=== PATIENT | female | born 2000 | race African-American/Black ===

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

== ENCOUNTER 2019-05-13 22:26 | Emergency (ER) | payer OTHER | END 2019-05-14 00:25 | disposition home or self-care (01) | LOC: ERS 22:26 | DX: R50.9 Fever, unspecified (principal) | CPT/HCPCS: 87804; 99283 ==

== ENCOUNTER 2019-09-23 14:33 | Inpatient (IN) | payer OTHER ==
[~2019-09-23 14:33] MED LIST: Bupivacaine/Epinephrine 0.25% 30 ML VIAL ONE
[2019-09-23 15:13] VITALS: BMI 28.6
[2019-09-23] MEDS ORDERED: NS / Oxytocin 40 units/1000ml 1,000 ML IV PRN (15:40)
[2019-09-23] MEDS ORDERED: hydrALAZINE 20 MG/ML VIAL SLOW IVP PRN (15:40)
[2019-09-23] MEDS ORDERED: Promethazine HCl 25 MG/ML VIAL IM PRN ×2 (15:40→23:22)
[2019-09-23] MEDS ORDERED: Ondansetron PF 4 MG/2 ML Vial IVP PRN ×2 (15:40→23:22)
[2019-09-23] MEDS ORDERED: HYDROcodone/Acetaminophen 5/325 mg Tablet PO PRN ×2 (15:40)
[2019-09-23] MEDS ORDERED: Ibuprofen 800 MG TAB PO PRN (15:40)
[2019-09-23] MEDS ORDERED: Lidocaine 1% (PF) 30 ML VIAL SC PRN (15:40)
[2019-09-23] MEDS ORDERED: Butorphanol Tartrate 1 MG/ML VIAL SLOW IVP PRN (15:40)
[2019-09-23] MEDS ORDERED: Penicillin G Potassium 5 MILL.UNITS in Sodium Chloride 0.9% 100 ML IVPB SCH (16:00)
--- NOTE | 2019-09-23 16:10 | PDOC.LDHP ---
Labor and Delivery H&P Chief complaint: loss of fluid, other HPI: Patient of Dr Gomez HPI: 19 yo at 39 weeks with SROM, no VB, good FM. Denies any issues. Current gestational age (weeks): 39 Grav: 2 Para: 1 OB History Details: x1 Current complications: none Abnormal US findings: No Current medications: pre- vitamins Previous surgical history: none Allergies/Adverse Reactions: Allergies Allergy/AdvReac Type Severity Reaction Status Date / Time No Known Allergies Allergy Verified 09/23/19 15:00 Social history: none - Physical Exam Vital signs reviewed and normal: yes General: NAD Heart: RRR Lungs: CTAB Abdomen: gravid Extremeties: no edema FHT: category 1 Chauncey contractions every: rare - Vaginal Exam cm dilated: 0 (Fingertip on exam per RN) Effacement: 25% Station: -2 - Assessment PROM at full term, GBS pos. I have seen the patient at bedside. - Plan Plan: admit to L&D, cervical ripening, GBS antibiotic prophylaxis, anesthesia consult for pain management
--- NOTE | 2019-09-23 16:22 | PDOC.EVN ---
Event Note - Event Note Event Note: CYTOTEC: Just received a call from nursing. She is concerned that the vag cytotec may be flushed out as she is having copious LOF. We have agreed on po cytotec at same dose and frequency (25 mcg po Q3 hrs).
[2019-09-23] MEDS: Lactated Ringer's 1,000 ML IV SCH ×2 (16:30→23:10)
[2019-09-23] MEDS: Misoprostol 100 MCG TAB PO SCH ×2 (16:32→20:41)
[2019-09-23] MEDS ORDERED: Misoprostol 100 MCG TAB VAG SCH (17:00)
[2019-09-23 17:23] LABS: Hemoglobin 11.7 g/dL (12.0-16.0); Mean Corpuscular HGB CONC 32.3 g/dL (32.0-36.0); Mean Corpuscular Volume 92.9 fL (78.0-98.0); Mean Platelet Volume 7.1 fL (7.4-10.4); Platelet Count 300 thou/uL (130-400); RBC Distribution Width 13.6 % (11.5-14.5); Red Blood Cell (RBC) Count 3.88 mill/uL (4.00-5.20); White Blood Cell (WBC) Count 13.2 thou/uL (4.8-10.8)
[2019-09-23 18:01] LABS: HBSAg Index 0.13 S/CO (0-0.99); HIV (1/2) Antibody/Antigen Non-Reactive (NonReactive); HIV 1/2 INDEX 0.05 S/CO (<1.00); Hep B Surf Ag Non-Reactive S/CO (NonReactive); Syphilis Antibody Nonreactive (Nonreactive); Syphilis Antibody Index 0.02 S/CO (<1.00 Non-Reactive)
[2019-09-23] MEDS: Penicillin G 2.5 MILL.units 2.5 MILL.UNITS in Premix Bag 1 BAG IVPB SCH (20:41)
[2019-09-23] MEDS ORDERED: Fentanyl 4 mcg/Bup 0.1% Cadd 100 ML ONE (21:51)
[2019-09-23] MEDS ORDERED: Fentanyl 100 MCG/2 ML VIAL ONE (22:17)
[2019-09-23] MEDS ORDERED: Acetaminophen 500 MG TAB PO SCH (23:00)
[2019-09-23] MEDS ORDERED: diphenhydrAMINE 50 MG/ML VIAL IVP PRN (23:22)
[2019-09-23] MEDS ORDERED: Acetaminophen 325 MG TAB PO PRN (23:22)
[2019-09-23] MEDS ORDERED: EPHEDRINE 25 MG/5 ML SYRINGE SLOW IVP PRN (23:22)
[2019-09-23] MEDS ORDERED: Lactated Ringer's 500 ML IV PRN (23:22)
[2019-09-23] MEDS ORDERED: Naloxone HCl 0.4 mg/ml Vial IVP PRN ×2 (23:22)
[2019-09-23] MEDS ORDERED: Fentanyl 4 mcg/Bupivacaine 0.1% Cassette 100 ML EPIDURAL SCH (23:30)
[2019-09-23] MEDS ORDERED: Communication Order-Pharmacy FS SCH (23:30)
[2019-09-24] MEDS ORDERED: NS w/ Oxytocin 10 units 500 ML ONE (01:08)
[2019-09-24] MEDS ORDERED: NS w/ Oxytocin 10 units 500 ML IVPB SCH (01:15)
[2019-09-24] MEDS ORDERED: hydrALAZINE 20 MG/ML VIAL SLOW IVP PRN (03:04)
[2019-09-24] MEDS ORDERED: Acetaminophen/Codeine 30-300mg Tablet PO PRN ×2 (03:04)
[2019-09-24] MEDS ORDERED: Bisacodyl 10 MG SUPP PR PRN (03:04)
[2019-09-24] MEDS ORDERED: Lanolin Ointment 7 GM TUBE TOP PRN (03:04)
[2019-09-24] MEDS ORDERED: Benzocaine-Menthol 82.5 ML CAN TOP PRN (03:04)
[2019-09-24] MEDS ORDERED: Milk Of Magnesia 30 ML UDCUP PO PRN (03:04)
--- NOTE | 2019-09-24 03:09 | PDOC.OPDEL ---
OB Operative/Delivery Note Delivery Dr/Surgeon: Pradeep Assist: [facility] Pre-Delivery Diagnosis: active labor Procedure/Post Delivery Dx: spontaneous vaginal delivery Weeks gestation: 39 Anesthesia: local - Findings A - 1 min: 8 (NICU present at ) - 5 min: 9 - Additional Findings/Plan Placenta delivered: spontaneous (vilma at 4 minutes after baby (baby at 0244; placenta at 0248)) Repaired Obstetrical Laceration: 2nd degree (Suspect lac was due to patient delivery at "off angle" as she was semi sitting with one leg (RT) flexed and left leg less flexed. Lac repaired under local and SOWMYA. 2-0 chromic on SH used.) Estimated blood loss: 100 Compilations/Other Findings: no NC; baby vigorous at ; delayed cord clamp for 30 sec; counts correct; no vag packs Post delivery plan: routine recovery
[2019-09-24] MEDS ORDERED: NS / Oxytocin 40 units/1000ml 1,000 ML IV SCH (03:15)
[2019-09-24] MEDS: Ibuprofen 800 MG TAB PO SCH ×3 (04:10→20:42)
[2019-09-24] MEDS: Misoprostol 100 MCG TAB PO SCH (05:52)
[2019-09-24] MEDS ORDERED: Varicella virus, LIVE 0.5 ML VIAL SC ONE (09:00)
[2019-09-24] MEDS ORDERED: Measles/Mumps/Rubella 10 MCG/0.5 ML VIAL SC ONE (09:00)
[2019-09-24] MEDS ORDERED: Adacel (T-DAP) 0.5 ML SYRINGE IM ONE (09:00)
[2019-09-24] MEDS: Ferrous Sulfate 325 MG TAB PO SCH ×2 (09:02→18:51)
[2019-09-24] MEDS: Penicillin G 2.5 MILL.units 2.5 MILL.UNITS in Premix Bag 1 BAG IVPB SCH (09:17)
[2019-09-24] MEDS: Prenatal Vitamin 1 TAB PO SCH (09:23)
[2019-09-24] MEDS: Docusate Calcium (SURFAK) 240 MG CAP PO SCH ×2 (09:23→20:42)
[2019-09-25] MEDS: Ibuprofen 800 MG TAB PO SCH ×2 (05:18→13:49)
[2019-09-25 06:58] LABS: #Basophils 0.1 thou/uL (0.0-0.2); #Eosinphils 0.1 thou/uL (0.0-0.7); #Lymphocytes 3.7 thou/uL (1.20-3.40); #Monocytes 0.7 thou/uL (0.11-0.59); #Neutrophils 6.6 thou/uL (1.40-6.50); %Basophils 0.7 % (0.0-1.0); %Eosinophils 0.8 % (0.0-10.0); %Lymphocytes 32.9 % (28.0-48.0); %Monocytes 6.4 % (0.0-4.0); %Neutrophils 59.2 % (31.0-61.0); Hemoglobin 9.4 g/dL (12.0-16.0); Mean Corpuscular HGB CONC 31.6 g/dL (32.0-36.0); Mean Corpuscular Hemoglobin 29.9 pg (25.0-35.0); Mean Corpuscular Volume 94.7 fL (78.0-98.0); Platelet Count 250 thou/uL (130-400); RBC Distribution Width 13.7 % (11.5-14.5); Red Blood Cell (RBC) Count 3.14 mill/uL (4.00-5.20); White Blood Cell (WBC) Count 11.1 thou/uL (4.8-10.8)
--- NOTE | 2019-09-25 07:11 | PDOC.PP ---
Post Progress Note Post Day #: 1 Subjective: Doing well this morning, no complaints. Would like to go home today. PO intake tolerated: yes Ambulation: yes Vital Signs (12 hours) Temp Pulse Resp BP Pulse Ox 09/25/19 00:00 98.4 F 86 16 108/52 L 98 09/24/19 19:36 98.6 F 82 16 95/46 L 98 Weight Weight 183 lb - Physical Examination Respiratory: non-labored breathing Neurological: no gross focal deficits Psychiatric: A&Ox3, normal affect Result Diagrams: 09/25/19 06:18 Additional Labs: Post Labs Blood Type O POSITIVE 09/23/19 17:32 Hep Bs Antigen Non-Reactive S/CO (NonReactive) 09/23/19 17:09 - Assessment/Plan Continue routine day 1 care. Would like to go home today. Order in for d/c today, vs tomorrow if baby must stay.
[2019-09-25] MEDS: Prenatal Vitamin 1 TAB PO SCH (08:00)
[2019-09-25] MEDS: Docusate Calcium (SURFAK) 240 MG CAP PO SCH (08:00)
[2019-09-25] MEDS: Ferrous Sulfate 325 MG TAB PO SCH (08:01)
[2019-09-25 09:10] VITALS: BP 105/59; TEMP 97.9
== END 2019-09-25 15:50 | disposition home or self-care (01) | DRG 807 ==
LOC: L&D/OP 14:33 → L&D 16:55 → 3SW 09-24 05:52
PROVIDERS: ADMIT Obstetrics & Gynecology; ATTEND Obstetrics & Gynecology
PROC: 10E0XZZ Delivery of Products of Conception, External Approach (ICD-10-PCS; principal; 2019-09-24)
PROC: 0KQM0ZZ Repair Perineum Muscle, Open Approach (ICD-10-PCS; 2019-09-24)
PROC: 3E0P7VZ Introduction of Hormone into Female Reproductive, Via Natural or Artificial Opening (ICD-10-PCS; 2019-09-24)
DX: O42.02 Full-term premature rupture of membranes, onset of labor within 24 hours of rupture (principal); Z37.0 Single live birth; O99.824 Streptococcus B carrier state complicating childbirth; O70.1 Second degree perineal laceration during delivery; Z3A.39 39 weeks gestation of pregnancy
CPT/HCPCS: 36415; 51702; 85025; 85027; 86780; 86850; 86900; 86901; 87340; 87389; 99285; J2405; J2540; J2550; J2590; J3010; J3490

== ENCOUNTER 2021-04-26 20:03 | Emergency (ER) | payer OTHER ==
[2021-04-27 16:52] LABS: SARS-CoV-2 PCR by NAA DETECTED (NotDetected)
== END 2021-04-26 23:25 | disposition home or self-care (01) ==
LOC: ERS 20:03
DX: U07.1 COVID-19 (principal); B34.9 Viral infection, unspecified
CPT/HCPCS: 99284; U0003; U0005

== ENCOUNTER 2023-07-08 22:38 | Emergency (ER) | payer SELFPAY ==
[2023-07-08] MEDS ORDERED: Acetaminophen 500 MG TAB ONE (23:11)
== END 2023-07-08 23:22 | disposition home or self-care (01) ==
LOC: ERS 22:38
DX: R42 Dizziness and giddiness (principal)
CPT/HCPCS: 93005

== ENCOUNTER 2023-08-01 20:36 | Emergency (ER) | payer SELFPAY | END 2023-08-01 21:40 | disposition home or self-care (01) | LOC: ERS 20:36 | DX: Z00.00 Encounter for general adult medical examination without abnormal findings (principal) | CPT/HCPCS: 99281 ==

== ENCOUNTER 2023-11-04 23:50 | Emergency (ER) | payer SELFPAY ==
[2023-11-05 00:18] LABS: Bacteria/HPF None Seen HPF (None Seen); Bilirubin Negative (Negative); Blood, Urine Negative (Negative); CAUTI Indications for Culture Dysuria,urgency,freq; Clarity Clear (Clear); Glucose, Urine (Dipstick) Normal (Negative); Ketone, Urine Negative (Negative); Leukocyte 500 Leu/uL (Negative); Nitrite Negative (Negative); Protein, Urine (Dipstick) 20 mg/dL (Neg-Trace); RBC/HPF 0-3 HPF (0-3); Specific Gravity, Urine 1.036 (1.002-1.036); Squamous Epithelial 0-3 HPF (0-3); Urobilinogen Normal mg/dL (Less than 2)
[2023-11-05 00:19] LABS: Urine Culture Reflex Yes Yes
[2023-11-05 01:35] LABS: Pregnancy Test - Urine (BHCG) Negative (Negative); Pregu Control Background? CLEAR/WHITE (CLR/WHITE); Pregu Control Bar Appear? YES (CONTROL BAR)
[2023-11-05 01:36] LABS: Specific Gravity 1.036 (1.002-1.036)
[2023-11-05 16:41] LABS: Chlamydia by PCR, Vaginal Swab DETECTED (NotDetected); GC by PCR, Vaginal Swab Not Detected (NotDetected)
== END 2023-11-05 02:47 | disposition home or self-care (01) ==
LOC: ERS 23:50
DX: M25.571 Pain in right ankle and joints of right foot (principal); N89.8 Other specified noninflammatory disorders of vagina
CPT/HCPCS: 81001; 81025; 87086; 87480; 87491; 87510; 87591; 87660

== ENCOUNTER 2023-11-11 16:49 | Emergency (ER) | payer SELFPAY ==
[2023-11-11] MEDS ORDERED: Acetaminophen 500 MG TAB ONE (16:57)
[2023-11-11 19:34] LABS: Bacteria/HPF None Seen HPF (None Seen); Bilirubin Negative (Negative); Blood, Urine 3+ (Negative); CAUTI Indications for Culture Dysuria,urgency,freq; Clarity Clear (Clear); Glucose, Urine (Dipstick) Normal (Negative); Ketone, Urine Trace mg/dL (Negative); Leukocyte 75 Leu/uL (Negative); Nitrite Negative (Negative); Protein, Urine (Dipstick) 100 mg/dL (Neg-Trace); RBC/HPF Greater than 50 HPF (0-3); Specific Gravity, Urine 1.043 (1.002-1.036); Squamous Epithelial None Seen HPF (0-3); WBC/HPF 0-3 HPF (0-3); pH, Urine 6.5 (5.0-9.0)
[2023-11-11 19:35] LABS: Pregnancy Test - Urine (BHCG) Negative (Negative); Pregu Control Background? CLEAR/WHITE (CLR/WHITE); Pregu Control Bar Appear? YES (CONTROL BAR); Specific Gravity 1.043 (1.002-1.036); Urine Culture Reflex No No
== END 2023-11-11 21:15 | disposition home or self-care (01) ==
LOC: ERS 16:49
DX: N94.6 Dysmenorrhea, unspecified (principal)
CPT/HCPCS: 81001; 81025; 99283

== ENCOUNTER → 2024-03-30 | Emergency (ER) | payer SELFPAY | LOC: ERS 18:56 | DX: G89.29 Other chronic pain (principal); M79.604 Pain in right leg | CPT/HCPCS: 99282 ==

== ENCOUNTER 2024-04-21 21:36 | Emergency (ER) | payer SELFPAY | END 2024-04-21 22:24 | disposition home or self-care (01) | LOC: ERS 21:36 | DX: R51.9 Headache, unspecified (principal) | CPT/HCPCS: 99283 ==